=== PATIENT | female | born 1995 | race Caucasian/White ===

== ENCOUNTER → 2020-04-22 12:11 | Outpatient (CLI) | payer OTHER, MEDICAID, SELFPAY ==
--- NOTE | 2020-04-22 12:14 | DI.US.S_ITS ---
PROCEDURE: US PELVIC COMPLETE INDICATIONS: EVALUATE FOR FEMALE REPRODUCTIVE ANOMALIES, TRANSABDOMINALLY TECHNIQUE: Real-time scanning was performed of the pelvic organs, with image documentation. Additional endovaginal scanning was necessary due to incomplete visualization of the adnexal and endometrial structures by transabdominal scanning. COMPARISON: None. FINDINGS: Transabdominal scanning: Limited scanning through the kidneys shows no hydronephrosis. No pathologic free abdominal or pelvic fluid. Endovaginal scanning: Uterus: Uterus is normal in size at 6.0 x 2.6 x 3.0 cm. The endometrium measures 3.7 mm in combined thickness. Ovaries: Normal ovaries bilaterally measuring 1.9 x 1.5 x 1.4 cm on the right and 2.4 x 2.0 x 1.6 cm on the left. IMPRESSION: No sonographic abnormalities of the uterus or ovaries. Dictated by: Hermelindo OLIVAREZ Interpreted: Kaykay Laureano MD on 04/22/2020 at 13:30 Approved by: Kaykay Laureano M.D. on 04/22/2020 at 17:44
== END ==
PROVIDERS: PCP Nurse Practitioner Family; Referring Provider Obstetrics & Gynecology; Visit Provider Obstetrics & Gynecology
DX: N94.10 Unspecified dyspareunia (principal); F84.5 Asperger's syndrome
CPT/HCPCS: 76856

== ENCOUNTER → 2020-09-04 08:52 | Outpatient (CLI) | payer OTHER, MEDICAID, SELFPAY ==
[2020-09-04 11:42] LABS: COVID19 -Nasal RAPID Negative (Negative)
== END ==
PROVIDERS: PCP Nurse Practitioner Family; Visit Provider Nurse Practitioner Family
DX: Z01.812 Encounter for preprocedural laboratory examination (principal); Z03.818 Encounter for observation for suspected exposure to other biological agents ruled out
CPT/HCPCS: 87635

== ENCOUNTER 2020-09-05 10:07 | Day surgery (SDC) | payer OTHER, MEDICAID, SELFPAY ==
[2020-09-02 10:40] VITALS: BMI 29.7
--- NOTE | 2020-09-05 | DI.US.S_ITS ---
PROCEDURE: US TRANSVAGINAL COMPARISON: None. INDICATIONS: OR ASSIST FINDINGS: Transvaginal scanning was performed, no transabdominal scanning was requested by the ordering healthcare provider. The uterus is anteverted and measures 3.2 x 5.2 x 7.1 cm with an endometrial lining thickness of 3 mm. Minimal fluid is seen within the endometrial canal. The ovaries bilaterally appear normal on transvaginal scanning. IMPRESSION: Normal myometrium and endometrial lining thickness, slight fluid within the endometrial canal cul without mass. Normal appearing ovaries. Limited evaluation at the request of Dr. Beaulieu Dictated by: Jimbo Thurston M.D. on 09/05/2020 at 13:12 Approved by: Jimbo Thurston M.D. on 09/05/2020 at 13:15
[2020-09-05 10:33] VITALS: BP 138/91; PULSE 95; RESP 18; TEMP 36.3; O2SAT 100; BMI 30.6
[2020-09-05] MEDS: LACTATED RINGERS 1,000 ML 42 ML IV (10:51)
--- NOTE | 2020-09-05 11:31 | SUR.OPER ---
Lithotomy on padded OR bed, head on pillow, arms secured on padded arm boards at <90 degrees abduction. Legs secured in padded yellow fins stirrups.
[2020-09-05] MEDS: BUPIVACAINE 0.25% W/ EPI (PF) 10 ML VIAL 20 ML INJ (11:47)
--- NOTE | 2020-09-05 11:55 | SUR.OPER ---
GLASSES TO PACU IN LABELED CASE WITH PATIENT.
[2020-09-05 12:12] VITALS: BP 143/89; PULSE 111; RESP 16; TEMP 36.2; O2SAT 97
--- NOTE | 2020-09-05 12:14 | PM.PREOP ---
Pre-operative Note COVID-19 COVID-19 status: Negative Result date/Date tested (Pos, Neg/Pending): 09/04/20 Interval Note History & Physical reviewed/Exam performed by Physician: Yes Changes to H&P: No H&P completed within 30 days and has changed as indicated here:: 09/05/20
--- NOTE | 2020-09-05 12:15 | P.OP_ITS ---
Operative Date/Time/Diagnoses Date of procedure: 09/05/20 Time of procedure: 12:15 Pre-op diagnosis: Irregular bleeding Possible vaginal septum Unable to do exam in the office Patient has never had a Pap smear Post-op diagnosis: same Procedure & Clinicians Procedure: Procedures Operation Date: 09/05/20 11:45 Actual Procedures Side Surgeon p Exam Under Anesthesia [employer] w/ pap (transvaginal u.s.) CRUCIATE INCISION OF HYMEN Not Applicable Zuleyma Beaulieu MD Indications: Irregular bleeding Unable to examine in the office Patient has never had a Pap smear Possible vaginal septum Surgeon: Zuleyma Beaulieu Anesthesia Type: General (LMA) Operative Notes Closure Type: not applicable Specimen(s): other (Pap smear) Estimated blood loss (mL): 10 Blood products transfused: none Procedure in detail: After informed consent was obtained, the patient was taken to the operating room where she was placed in the dorsal supine position. After adequate LMA general anesthesia was achieved, she was placed in the dorsal lithotomy position, and prepped externally in the usual fashion. A time-out was performed. An examination of the external genitalia was performed and it was normal. A bivalve speculum passed easily into the vagina. A thin prep Pap of the cervix was obtained. The bivalve speculum was removed. A transvaginal ultrasound was performed which revealed a normal uterus. The ovaries were polycystic bilaterally. At the introitus there was a prominent hymen. A cruciate incision was made. The flaps of the hymen were sutured with 3-0 chromic. Hemostasis was achieved. Sponge, lap, and instrument counts were correct x2. The patient tolerated the procedure well, and was taken to PACU in stable condition. Complications: none Post-operative Condition: stable Disposition: PACU Plan for aftercare: Home after recovery
--- NOTE | 2020-09-05 12:15 | PM.HP.1 ---
History of Present Illness History of Present Illness Date Patient Seen: 09/05/20 Time Patient Seen: 12:15 Chief complaint: EXAM UNDER ANESTHESIA Narrative: Patient is a 25-year-old 0 presents for an examination under anesthesia, transvaginal ultrasound, and possible removal of septum. Patient has Asperger's. She was unable to be examined in the office. She has been unable to use tampons. Patient History Medical History (Updated 08/06/20 @ 05:56 by Zlueyma Beaulieu MD) Allergic rhinitis (Chronic 2007) Anxiety (Chronic ~1998) Asperger's disorder (Chronic 01/12/17) Autism (Chronic ~1998) Chickenpox (Resolved 1996) PTSD (post-traumatic stress disorder) (Chronic) Surgical History History of oral surgery (2007) Family & Social History Family History (Updated 06/24/18 @ 13:43 by Maribell Hayes LPN) Father No problems noted. Mother No problems noted. Grandfather Cancer Social History: household members family Tobacco & Substance use: Tobacco type cigars Smoking Status Former smoker alcohol intake current alcohol intake frequency 0-2 drinks per day Substance Use Type does not use Meds Home Medications and Allergies Home Medications Medication Instructions Recorded Confirmed Type buspirone 10 mg tablet 15 mg PO TID tab 04/08/20 09/05/20 History clonidine HCl 0.1 mg 0.1 mg PO BEDTIME PRN 04/08/20 09/05/20 History tablet,extended release,12 hr fluoxetine 20 mg capsule 40 mg PO DAILY cap 04/08/20 09/05/20 History norethindrone 1 mg-ethinyl 1 tab PO Q DAY #28 tab 04/10/20 09/05/20 Rx estradiol 35 mcg tablet oxycodone-acetaminophen [Percocet] 1 tab PO Q4-6H PRN #14 tab 09/05/20 Rx Allergies Allergy/AdvReac Type Severity Reaction Status Date / Time zolpidem [From Ambien] AdvReac Severe Hallucinations Verified 08/05/20 13:31 and sleep walking Exam Vital Signs (past 8 hours): - 09/05/20 10:33 Temperature 97.4 F L Pulse Rate 95 H Respiratory Rate 18 Blood Pressure 138/91 H Pulse Oximetry 100 Oxygen Delivery Method Room Air Narrative Exam Narrative: HEENT: No thyromegaly, no anterior cervical or supraclavicular lymphadenopathy. Lungs:Clear to auscultation bilaterally, no wheezes. Cardiovascular: Regular rate and rhythm, no murmurs, rubs, or gallops. Abdomen: No scars. No hepatosplenomegaly. No masses palpable. External genitalia: Could not examine Vagina: Could not examine Cervix: Could not examine Bimanual exam: Could not examine Rectal: No masses. Assessment & Plan Assessment & Plan narrative: Assessment: 25-year-old 0 with irregular bleeding, inability to use tampons, possible vaginal septum Plan: Examination under anesthesia, Pap smear, transvaginal ultrasound, and possible excision of septum The risks, benefits, and alternatives to the procedure were explained to the patient. The risks including bleeding and infection. She understands these risks and agrees to proceed. A full par Q was held and consent form was signed. COVID-19 COVID-19 status: Negative Result date/Date tested (Pos, Neg/Pending): 09/04/20 Time Spent With Patient Time with patient: 15-24 minutes
[2020-09-05 12:17] VITALS: BP 130/83; PULSE 108; RESP 21; O2SAT 97
[2020-09-05 12:22] VITALS: BP 127/77; PULSE 101; RESP 16; O2SAT 99
[2020-09-05 12:27] VITALS: BP 131/82; PULSE 91; RESP 12; O2SAT 99
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
[2020-09-05 12:35] VITALS: BP 124/80; PULSE 83; RESP 20; TEMP 37.2; O2SAT 96
== END 2020-09-05 12:50 | disposition home or self-care (01) ==
PROVIDERS: PCP Nurse Practitioner Family; Referring Provider Nurse Practitioner Family; Visit Provider Obstetrics & Gynecology
PROC: (CPT 57410; principal; 2020-09-05 11:45)
DX: Q52.3 Imperforate hymen (principal); N93.8 Other specified abnormal uterine and vaginal bleeding; E28.2 Polycystic ovarian syndrome; F84.5 Asperger's syndrome; F43.12 Post-traumatic stress disorder, chronic; F41.9 Anxiety disorder, unspecified
CPT/HCPCS: 56442; 76830; 76856; J1100; J2250; J2405; J2704; J3010

== ENCOUNTER → 2021-03-31 12:49 | Outpatient (CLI) | payer OTHER, MEDICAID, SELFPAY ==
--- NOTE | 2021-03-31 12:50 | DI.US.S_ITS ---
PROCEDURE: US PELVIC LIMITED INDICATIONS: ABNORMAL UTERINE BLEEDING TECHNIQUE: Real-time transabdominal scanning was performed of the pelvic organs, with image documentation. COMPARISON: None. FINDINGS: Uterus: The uterus measures 6.7 x 3.6 x 3.1 centimeters. Endometrial thickness is 5.5 millimeters. Uterine echotexture is normal. The cervix is normal. Ovaries: The right ovary measures 2.3 x 1.5 x 1.2 centimeters. No solid or cystic masses of the right ovary. The left ovary is not well seen due to overlying bowel gas. Other: No free pelvic fluid. IMPRESSION: Normal pelvic ultrasound. The left ovary was not visualized however. Dictated by: Lv Smith M.D. on 03/31/2021 at 16:11 Approved by: Lv Smith M.D. on 03/31/2021 at 16:13
== END ==
PROVIDERS: PCP Nurse Practitioner Family; Referring Provider Obstetrics & Gynecology; Visit Provider Obstetrics & Gynecology
DX: N93.9 Abnormal uterine and vaginal bleeding, unspecified (principal)
CPT/HCPCS: 76857

== ENCOUNTER → 2021-08-12 16:41 | Outpatient (CLI) | payer MEDICARE, OTHER, MEDICAID, SELFPAY ==
[2021-08-12 17:12] LABS: Add Manual Diff / Slide Review NO; Basophils Absolute Auto 100 /uL (0-100); Eosinophils Absolute Auto 200 /uL (0-450); Eosinophils Percent Auto 1.8 % (2-4); Hematocrit 39.1 % (36-46); Lymphocytes Absolute Auto 2400 /uL (1100-4500); Lymphocytes Percent Auto 23.1 % (25-40); Mean Corpuscular HGB Conc 33.3 % (30-36); Mean Corpuscular Hemoglobin 28.7 PG (26-34); Mean Corpuscular Volume 86.2 fL (80-100); Monocytes Absolute Auto 600 /uL (0-900); Monocytes Percent Auto 6.2 % (3-14); Neutrophils Absolute Auto 7000 /uL (1500-7000); Neutrophils Percent Auto 67.9 % (50-75); Platelet Count 418 X10^3/uL (150-400); Red Blood Cell Count 4.54 X10^6/uL (4.0-5.2); Red Cell Distribution Width 12.5 % (11.6-14.8); White Blood Cell Count 10.4 X10^3/uL (4.5-11.0)
[2021-08-12 17:41] LABS: Alanine Aminotransferase 17 IU/L (<35); Albumin 4.4 g/dL (3.5-5.0); Albumin Globulin Ratio 1.4 (1.0-2.8); Alkaline Phosphatase 120 U/L (38-126); Aspartate Aminotransferase 18 IU/L (14-36); Bilirubin Total 0.3 mg/dL (0.2-1.3); Blood Urea Nitrogen 8 mg/dL (7-17); C-Reactive Protein Quant 2.9 mg/dL (<1.0); Calcium 9.6 mg/dL (8.4-10.2); Carbon Dioxide 23 mmol/L (22-32); Chloride 105 mmol/L (98-107); Estimated Glomerular Filt Rate > 60.0 mL/min (>60); Globulin 3.1 g/dL (1.7-4.1); Glucose 107 mg/dL (70-100); HEMOLYSIS < 15 (0-50); Potassium 4.3 mmol/L (3.4-5.1); Sodium 140 mmol/L (137-145); Total Protein 7.5 g/dL (6.3-8.2)
[2021-08-12 17:48] LABS: Erythrocyte Sedimentation Rate 24 MM/HR (0-20)
[2021-08-12 17:51] LABS: TSH w/ Reflex to FT4 1.67 uIU/mL (0.47-4.68)
== END ==
PROVIDERS: PCP Nurse Practitioner Family; Referring Provider Nurse Practitioner Family; Visit Provider Nurse Practitioner Family
DX: R19.5 Other fecal abnormalities (principal); R19.7 Diarrhea, unspecified; Z86.19 Personal history of other infectious and parasitic diseases
CPT/HCPCS: 36415; 80053; 84443; 85025; 85651; 86140

== ENCOUNTER → 2021-08-13 13:24 | Outpatient (CLI) | payer MEDICARE, OTHER, MEDICAID, SELFPAY ==
[2021-08-15 16:44] LABS: Calprotectin, Stool 111 ug/g (0-120)
== END ==
PROVIDERS: PCP Nurse Practitioner Family; Referring Provider Nurse Practitioner Family; Visit Provider Nurse Practitioner Family
DX: R19.7 Diarrhea, unspecified (principal); R19.5 Other fecal abnormalities; Z86.19 Personal history of other infectious and parasitic diseases
CPT/HCPCS: 83993; 87045; 87177; 87899

== ENCOUNTER → 2021-09-01 12:14 | Outpatient (CLI) | payer MEDICARE, OTHER, MEDICAID, SELFPAY ==
[2021-09-02 10:36] LABS: C difficie Toxins A and B, EIA Negative (Negative)
== END ==
PROVIDERS: PCP Nurse Practitioner Family; Referring Provider Nurse Practitioner Family; Visit Provider Nurse Practitioner Family
DX: R19.5 Other fecal abnormalities (principal); R19.7 Diarrhea, unspecified; Z86.19 Personal history of other infectious and parasitic diseases
CPT/HCPCS: 87324

== ENCOUNTER → 2021-10-28 13:34 | Outpatient (CLI) | payer MEDICARE, OTHER, MEDICAID, SELFPAY ==
--- NOTE | 2021-10-28 13:39 | DI.RAD.S_ITS ---
PROCEDURE: XR ABDOMEN MIN 2V INDICATIONS: altered bowel function TECHNIQUE: 2 views of the abdomen were acquired. COMPARISON: None. FINDINGS: Surgical changes and devices: None. Bowel: No pneumoperitoneum. Mild fecal loading; otherwise bowel gas pattern is normal. Soft tissues: No masses; visualized solid organ contours appear normal in size. No suspicious abdominal calcifications. Bones: No suspicious bony abnormalities. IMPRESSION: Mild fecal loading; otherwise normal bowel gas pattern. Dictated by: Hermelindo Nguyễn [facility] Interpreted: Kaykay Laureano MD on 10/28/2021 at 14:35 Transcribed by: ANTONIO on 10/28/2021 at 14:35 Approved by: Kaykay Laureano M.D. on 10/28/2021 at 16:08
== END ==
PROVIDERS: PCP Nurse Practitioner Family; Referring Provider Internal Medicine Gastroenterology; Visit Provider Internal Medicine Gastroenterology
DX: R19.8 Other specified symptoms and signs involving the digestive system and abdomen (principal)
CPT/HCPCS: 74019

== ENCOUNTER → 2021-11-21 14:04 | Outpatient (CLI) | payer MEDICARE, MEDICAID, SELFPAY ==
[2021-11-21 16:02] LABS: COVID19 -Nasal RAPID Negative (Negative)
== END ==
PROVIDERS: PCP Nurse Practitioner Family; Visit Provider Family Medicine Sleep Medicine
DX: Z20.822 Contact with and (suspected) exposure to COVID-19 (principal)
CPT/HCPCS: 87635; C9803

== ENCOUNTER → 2021-11-28 11:34 | Outpatient (CLI) | payer MEDICARE, MEDICAID, SELFPAY ==
[2021-11-28 13:58] LABS: COVID19 -Nasal RAPID Negative (Negative)
== END ==
PROVIDERS: PCP Nurse Practitioner Family; Visit Provider Family Medicine Sleep Medicine
DX: Z20.822 Contact with and (suspected) exposure to COVID-19 (principal)
CPT/HCPCS: 87635; C9803

== ENCOUNTER 2021-12-01 07:04 | Day surgery (SDC) | payer MEDICARE, MEDICAID, SELFPAY ==
[2021-12-01] VITALS (7 sets, daily range): BP systolic 117–142; BP diastolic 75–92; PULSE 110–134; RESP 17–24; TEMP 36.8–37.4; O2SAT 91–97; BMI 34.3
[2021-12-01] MEDS: SODIUM CHLORIDE 0.9% 1,000 ML 150 ML IV (07:44)
--- NOTE | 2021-12-01 08:01 | PM.HP.1 ---
History of Present Illness History of Present Illness Date Patient Seen: 12/01/21 Time Patient Seen: 08:02 Chief complaint: DX COLONSCOPY Narrative: I reviewed my note from October 13. No significant changes. Patient History Medical History Allergic rhinitis (2007) Anxiety (~1998) Asperger's disorder (01/12/17) Autism (~1998) C. difficile colitis (05/2021) Chickenpox (1996) Diarrhea History of Clostridioides difficile colitis Mucous in stools PTSD (post-traumatic stress disorder) Surgical History History of oral surgery (2007) Family & Social History Family History Father No problems noted. Mother No problems noted. Grandfather Cancer Social History: household members family Tobacco & Substance use: Tobacco type cigars Smoking Status Former smoker alcohol intake current alcohol intake frequency 0-2 drinks per day Substance Use Type does not use Meds Home Medications and Allergies Home Medications Medication Instructions Recorded Confirmed Type buspirone 10 mg tablet 15 mg PO TID tab 04/08/20 12/01/21 History clonidine HCl 0.1 mg 0.1 mg PO BEDTIME PRN 04/08/20 12/01/21 History tablet,extended release,12 hr fluoxetine 20 mg capsule 40 mg PO DAILY cap 04/08/20 12/01/21 History medroxyprogesterone 10 mg tablet 20 mg PO .COMPLEX #100 tab 12/06/20 12/01/21 Rx loratadine 10 mg tablet 10 mg PO DAILY 08/12/21 12/01/21 History sertraline 25 mg tablet 25 mg PO DAILY 08/12/21 12/01/21 History Allergies Allergy/AdvReac Type Severity Reaction Status Date / Time diazepam [From Valium] Allergy Intermediate Hallucinati Verified 12/01/21 07:24 ng zolpidem [From Ambien] AdvReac Severe Hallucinations Verified 12/01/21 07:22 and sleep walking Review of Systems Review of Systems ROS: Yes All systems reviewed with the patient and are negative except as otherwise documented Exam Vital Signs (past 8 hours): - 12/01/21 07:30 Temperature 98.8 F Pulse Rate 112 H Respiratory Rate 18 Blood Pressure 142/92 H Pulse Oximetry 97 Oxygen Delivery Method Room Air Const General: cooperative and comfortable Orientation: alert HENMT Head: normocephalic Ears: external ears normal Nose: external nose normal Face and sinus: normal facial exam Mouth: oral mucosae normal Eyes General: appearance normal, both eyes and all related structures Neck Neck: normal visual inspection Chest Chest: normal inspection of the chest Resp Effort & Inspection: normal respiratory effort Cardio Rate: regular rate GI Inspection: normal to inspection Skin General: no rashes or lesions noted and No jaundice Neuro General: patient alert and moves all extremities Cognition: normal cognition Speech: speech normal Extrem General: no pedal edema Psych Appearance: grossly normal Assessment & Plan Assessment & Plan narrative: 26-year-old female with unexplained chronic diarrhea. Colonoscopy is planned for today. Time Spent With Patient Critical Care time: I spent a total of [] minutes of critical care time on this patient's care today; this time is exclusive of procedural time.
--- NOTE | 2021-12-01 08:03 | PM.PREOP ---
Pre-operative Note COVID-19 COVID-19 status: Negative Result date/Date tested (Pos, Neg/Pending): 11/28/21 Criteria for continued procedure: Possibility delay results in more complex future surgery or treatment Interval Note History & Physical reviewed/Exam performed by Physician: Yes Changes to H&P: No ASA Class (for procedural sedation): II
--- NOTE | 2021-12-01 08:32 | PM.OP.COLON ---
Operative Date/Time/Diagnoses Date of procedure: 12/01/21 Time of procedure: 08:32 Pre-op diagnosis: Diarrhea Post-op diagnosis: same Procedure & Clinicians Study performed: Partial colonoscopy (incomplete secondary to suboptimal patient tolerance of sedation) Same procedure as scheduled: Yes Indications: Diarrhea Surgeon: Jaime Welsh Procedure Notes SCOAP/Timeout: Done Procedure in detail: After the risks and benefits were explained, written and verbal informed consent was obtained. The patient was brought into the procedure room and placed into the left lateral decubitus position. Conscious sedation medication was applied as per nursing documentation. Digital rectal examination was accomplished. The scope was introduced into the patient and advanced under direct visualization to the descending colon and the patient started to experience an unusual shaking during the sedation. She started to experience some partial laryngospasm. Ultimately I had to abandon the procedure and the patient was placed in the supine position with jaw thrust oral airway insertion and bag ventilation. She did not appear to be safe to re-attempt sedation and so we did not attempt to repeat colonoscopy for completion. Bowel prep adequate Adult colonoscope Scope withdrawal time: Not applicable Specimen(s): none sent Complications: none Impression: I reached perhaps splenic flexure. I did not see any proctitis no colitis no distal polyps. Patient was intolerant of sedation as above. The exam was necessarily cut short to allow her to recover from the sedation Post-procedure Plan for aftercare: 1. Fiber regimen with Metamucil 2-3 times per day. 2. Follow up GI clinic in the next 4 weeks to review ongoing response. 3. Should symptoms persist and we decide to pursue colonoscopy once again, full anesthesia with endotracheal intubation may be required. Disposition: PACU
--- NOTE | 2021-12-01 08:58 | SUR.PHASEI ---
Pt arrived, coughing, crying, lots of nasal secretions, coughing up clear sputum, small amounts, GERALD Vital at bedside- supportive.
--- NOTE | 2021-12-01 14:56 | SUR.PHASEII ---
Late entry: Pt brought to [facility] room five, mom brought in. GERALD Bahena stayed with pt as well. Pt very emotional, coughing, vomited. Pt telling mom it was all her fault she was here, blaming mom for they way she felt. Pt eventually calmed, belly soft, lungs clear. Pt. left in stable condition.
== END 2021-12-01 10:15 | disposition home or self-care (01) ==
PROVIDERS: PCP Nurse Practitioner Family; Referring Provider Internal Medicine Gastroenterology; Visit Provider Internal Medicine Gastroenterology
PROC: 0DJD8ZZ Inspection of Lower Intestinal Tract, Via Natural or Artificial Opening Endoscopic (ICD-10-PCS; CPT 45378; principal; 2021-12-01 08:00)
DX: R19.7 Diarrhea, unspecified (principal); Z53.09 Procedure and treatment not carried out because of other contraindication; F41.9 Anxiety disorder, unspecified; F84.0 Autistic disorder; F43.10 Post-traumatic stress disorder, unspecified; Z87.19 Personal history of other diseases of the digestive system
CPT/HCPCS: 45378

== ENCOUNTER → 2022-09-21 09:33 | Outpatient (CLI) | payer MEDICARE, OTHER, MEDICAID, SELFPAY | PROVIDERS: PCP Family Medicine; Referring Provider Obstetrics & Gynecology; Visit Provider Obstetrics & Gynecology | DX: O92.70 Unspecified disorders of lactation (principal); N64.4 Mastodynia | CPT/HCPCS: 36415 ==